=== PATIENT | female | born 1955 | race Two or more races ===

== ENCOUNTER 2023-01-25 09:45 | Emergency (ER) | payer BC ==
[~2023-01-25] VITALS: Ht 167.6 cm; Wt 116.0 kg
[2023-01-25 10:32] LABS: Urine Bacteria NONE SEEN /hpf (None Seen); Urine Blood Negative /uL (Negative); Urine Clarity Clear (Clear); Urine Color Colorless (Yellow); Urine Protein, UAD Negative (Negative); Urine Specific Gravity 1.022 (1.001-1.035); Urine Urobilinogen Normal (Negative); Urine WBC <1 /hpf (0 - 5)
[2023-01-25 10:37] VITALS: BP 135/91; PULSE 79; RESP 18; TEMP 98.9; O2SAT 100
[2023-01-25] MEDS ORDERED: PHEN-1044 PO (11:07)
[2023-01-25] MEDS ORDERED: IBUP-1455 PO (11:07)
== END 2023-01-25 11:17 | disposition home or self-care (01) ==
LOC: ER 09:45
DX: R30.0 Dysuria (principal); Z90.710 Acquired absence of both cervix and uterus
CPT/HCPCS: 81001